=== PATIENT | male | born 1975 | race Caucasian/White ===

== ENCOUNTER 2016-08-02 19:59 | Emergency (ER) | payer MEDICAID ==
[~2016-08-02 19:59] MED LIST: ASPIRIN PO; GLU500 PO; METFORMIN ER500 MG PO; METFORMIN500 MG PO; MOT600 PO; PROZ20 PO; ZES20 PO; ZOC20 PO; ZOF4 PO
== END 2016-08-02 21:21 | disposition left against medical advice (07) ==
LOC: ED 19:59
DX: Z53.21 Procedure and treatment not carried out due to patient leaving prior to being seen by health care provider (principal)